=== PATIENT | male | born 1970 | race Caucasian/White ===

== ENCOUNTER → 2020-01-09 | Outpatient (CLI) | payer BC | LOC: COL.RAD 14:30 | DX: N50.82 Scrotal pain (principal) ==

== ENCOUNTER 2020-07-31 07:56 | Day surgery (SDC) | payer BC ==
[~2020-07-31] VITALS: Ht 177.8 cm; Wt 85.2 kg
[2020-07-31] MEDS ORDERED: HCTZ12.5TAB PO (08:20)
[2020-07-31] MEDS ORDERED: CELEBREX 200MG200 MG PO (08:21)
[2020-07-31] MEDS ORDERED: CIALIS5 MG PO (08:22)
[2020-07-31] MEDS ORDERED: PRILOSEC 20MG20 MG PO (08:22)
[2020-07-31 08:44] VITALS: BP 148/85; PULSE 79; TEMP 98.4
[2020-07-31 09:45] VITALS: BP 133/81; PULSE 70; TEMP 97.4
--- NOTE | 2020-07-31 09:45 | NUR ---
PATIENT TRANSPORTED PER CART FROM GI SUITE TO BAY 4 ACCOMPANIED BY DYLON RN. PATIENT TALKS WITHS STAFF. AMBULATED FROM CART TO CHAIR WITH SLOW STEADY GAIT WITH 2 ASSIST. MONITORS APPLIED. VSS ON ROOM AIR. IN ROOM VERBAL REPORT RECEIVED.
[2020-07-31 10:00] VITALS: BP 122/73; PULSE 70
--- NOTE | 2020-07-31 10:11 | NUR ---
VSS ON ROOM AIR. PATIENT TOLERATES TOAST AND COFFEE WITHOUT PROBLEMS. IN ROOM. DR ANTONIO IN ROOM AND SPEAKS WITH PATIENT AND .
[2020-07-31 10:15] VITALS: BP 125/75; PULSE 69
--- NOTE | 2020-07-31 10:25 | NUR ---
Dismissal instructions given and voices understanding of these. Spouse also voices understanding and all questions answered.
--- NOTE | 2020-07-31 10:30 | NUR ---
Patient dismissed to home driven by spouse and taken to front door per wheelchair and dismissed to home with instructions in hand.
== END 2020-07-31 10:30 | disposition home or self-care (01) ==
LOC: SDCO 07:56
DX: Z12.11 Encounter for screening for malignant neoplasm of colon (principal); K63.5 Polyp of colon; K64.0 First degree hemorrhoids; K21.9 Gastro-esophageal reflux disease without esophagitis; I10 Essential (primary) hypertension; Z79.899 Other long term (current) drug therapy
CPT/HCPCS: J2405; J2704; J3010; J7030